=== PATIENT | female | born 1960 | race Caucasian/White ===

== ENCOUNTER 2017-11-12 14:40 | Emergency (ER) | payer BC ==
[2017-11-12] MEDS ORDERED: traMADol 50 MG Tab PO ONE (19:15)
--- NOTE | 2017-11-23 10:54 | EDM.PDOC ---
Scribed by Lashae Ojeda 11/12/17 [id number] for Liz Mock NP <Ramirez Mtz - Last Filed: 11/12/17 19:23> ED HPI GENERAL MEDICAL PROBLEM - General Chief Complaint: Lower Extremity Injury/Pain Stated Complaint: FELL. IN BY CHIP [phone] Time Seen by Provider: 11/12/17 16:17 Source of Information: Reports: Patient History Limitations: Reports: No Limitations - History of Present Illness INITIAL COMMENTS - FREE TEXT/NARRATIVE: slipped and fell hurting left hand & foot & right knee. denies head-neck injury/ pain. - Related Data Allergies Allergy/AdvReac Type Severity Reaction Status Date / Time acetaminophen [From Roxicet] Allergy Nausea and Verified 11/12/17 19:13 Vomiting ciprofloxacin [From Cipro] Allergy Swelling Verified 11/12/17 19:23 oxycodone [From Roxicet] Allergy Nausea and Verified 11/12/17 19:13 Vomiting Home Meds: Home Meds Anastrozole [Arimidex] 1 tab PO DAILY 11/12/17 [History] Furosemide [Lasix] 80 mg PO DAILY 11/12/17 [History] Levothyroxine 175 mg PO DAILY 11/12/17 [History] Loratadine [Claritin] 10 mg PO DAILY 11/12/17 [History] Penicillin V Potassium [Veetids] 250 mg PO DAILY 11/12/17 [History] Potassium Chloride 20 meq PO DAILY 11/12/17 [History] Review of Systems - Review of Systems Review Of Systems: ROS reveals no pertinent complaints other than HPI. ED EXAM, GENERAL - Physical Exam Exam: See Below Exam Limited By: No Limitations General Appearance: Alert, WD/WN, Mild Distress, Other (discomfort) Ears: Hearing Grossly Normal Throat/Mouth: Normal Voice, No Airway Compromise Head: Atraumatic Neck: Non-Tender, Full Range of Motion Respiratory/Chest: No Respiratory Distress Cardiovascular: Regular Rate, Rhythm GI/Abdominal: Soft, Non-Tender Extremities: Other (left [id number] knee without gross deformity, NV wnl, gait limited to pain. ) Neurological: Alert, Oriented, Normal Cognition, No Motor/Sensory Deficits Psychiatric: Normal Affect, Normal Mood Skin Exam: Warm, Dry, Normal Color Lymphatic: No Adenopathy Course - Vital Signs Last Recorded V/S: Last Vital Signs Temp 36.6 C 11/12/17 16:02 Pulse 79 11/12/17 16:02 Resp 18 11/12/17 16:02 BP 116/83 11/12/17 16:02 Pulse Ox 99 11/12/17 16:02 - Orders/Labs/Meds Meds: Medications Discontinued Medications Generic Name Dose Route Start Last Admin Trade Name Freq PRN Reason Stop Dose Admin Tramadol HCl 50 mg 11/12/17 19:15 11/12/17 19:21 Ultram PO 11/12/17 19:16 50 mg ONETIME ONE Administration Departure - Departure Time of Disposition: 19:19 Disposition: Home, Self-Care 01 Condition: Good Clinical Impression: Contusion, foot, Contusion of knee, right, Contusion of hand, left - Discharge Information Instructions: Contusion, [id number] Forms: ED Department Discharge Additional Instructions: 1) ice intermittently to sore areas 2) elevate right knee and left foot as much as possible next 48 hours 3) recheck if there is any change or concern rx given; tramadol 50mg bid prn x 12 <Liz Mock - Last Filed: 11/16/17 13:27> ED HPI GENERAL MEDICAL PROBLEM Left Feet Pain Score (Numeric/FACES): 6 Past Medical History HEENT History: Reports: Impaired Vision, Other (See Below) Other HEENT History: wears glasses Cardiovascular History: Reports: None Respiratory History: Reports: None Gastrointestinal History: Reports: None Genitourinary History: Reports: Acute Renal Failure Musculoskeletal History: Reports: Fracture, Other (See Below) Other Musculoskeletal History: elbow Neurological History: Reports: None Psychiatric History: Reports: None Endocrine/Metabolic History: Reports: None Hematologic History: Reports: None Immunologic History: Reports: None Oncologic (Cancer) History: Reports: Breast, Other (See Below) Other Oncologic History: 8 years ago Dermatologic History: Reports: Cellulitis Social & Family History - Tobacco Use Smoking Status *Q: Never Smoker - Recreational Drug Use Recreational Drug Use: No Course - Orders/Labs/Meds Meds: Medications Discontinued Medications Generic Name Dose Route Start Last Admin Trade Name Freq PRN Reason Stop Dose Admin Tramadol HCl 50 mg 11/12/17 19:15 11/12/17 19:21 Ultram PO 11/12/17 19:16 50 mg ONETIME ONE Administration - Radiology Interpretation Free Text/Narrative:: X-ray left wrist: Normal left wrist. See Rad report. X-ray left foot: No acute osseous findings. See Rad report. X-ray right knee: No acute findings. See Rad report. I have read and agree with the documentation that has been completed regarding this visit. By signing this record, I attest that the documentation was completed in my physical presence and is an accurate record of the encounter.
== END 2017-11-12 19:34 | disposition home or self-care (01) ==
LOC: DL.ED 14:40
DX: S80.01XA Contusion of right knee, initial encounter (principal); S90.32XA Contusion of left foot, initial encounter; S60.222A Contusion of left hand, initial encounter; Z88.1 Allergy status to other antibiotic agents; Z79.899 Other long term (current) drug therapy; Z88.8 Allergy status to other drugs, medicaments and biological substances; W01.198A Fall on same level from slipping, tripping and stumbling with subsequent striking against other object, initial encounter
CPT/HCPCS: 73110; 73562; 73630; 99283; A9270